=== PATIENT | male | born 1975 | race Caucasian/White ===

== ENCOUNTER → 2017-05-20 | Outpatient (CLI) | payer BC ==
--- NOTE | 2017-05-20 08:24 | US ---
EXAMINATION TYPE: US abdomen complete DATE OF EXAM: 05/20/2017 COMPARISON: NONE CLINICAL HISTORY: R10.11 Right upper quadrant pain. Pain that extends to back x 2 weeks, after eating greasy foods, has been changing up diet, large body habitus EXAM MEASUREMENTS: Liver Length: 19.7 cm Gallbladder Wall: 0.3 cm CBD: 0.6 cm Spleen: 11.1 cm Right Kidney: 11.7 x 5.7 x 6.4 cm Left Kidney: 13.4 x 5.7 x 7.0 cm *overlying bowel gas limits exam Pancreas: wnl Liver: difficult to penetrate, enlarged Gallbladder: wnl Evidence for sonographic Luna's sign: no CBD: wnl Spleen: wnl Right Kidney: wnl Left Kidney: wnl Upper IVC: wnl Abd Aorta: wnl The intrahepatic portion of the IVC and proximal abdominal aorta are within normal limits. There is no evidence of cholelithiasis. Common bile duct is unremarkable. The visualized portions of the pa ncreas are homogenous. The spleen is unremarkable. Kidneys are symmetric and free of hydronephrosis . No renal lesions are seen. IMPRESSION: 1. Hepatomegaly with probable underlying fatty hepatic infiltration versus hepatocellular disease.
== END | disposition home or self-care (01) ==
LOC: RADUSWWP 07:19
PROVIDERS: ATTEND Internal Medicine
DX: R16.0 Hepatomegaly, not elsewhere classified (principal); R10.11 Right upper quadrant pain
CPT/HCPCS: 76700

== ENCOUNTER → 2017-06-09 | Outpatient (CLI) | payer BC ==
--- NOTE | 2017-06-09 09:09 | NM ---
EXAMINATION TYPE: NM hepatobiliary w EF DATE OF EXAM: 06/09/2017 COMPARISON: Abdominal ultrasound dated 05/20/2017 HISTORY: Right upper quadrant pain TECHNIQUE: After the intravenous administration of 5.25 mCi Tc 99m Mebrofenin hepatobiliary scintigra phy is performed. Immediate images post injection. FINDINGS: There is satisfactory initial accumulation of tracer by the liver. The gallbladder is visualized wit hin 8 minutes. At one hour 8 ounces of oral ensure plus is given to mimic CCK and gallbladder ejecti on fraction is calculated at 73 %, in the normal range. Therefore there is no scintigraphic evidence of cystic or common bile duct obstruction to suggest acute cholecystitis or gallbladder dyskinesia. IMPRESSION: No scintigraphic evidence of acute cholecystitis, chronic cholecystitis or biliary dyskin esia.
== END | disposition home or self-care (01) ==
LOC: RADNMMAIN 06:47
PROVIDERS: ATTEND Family Medicine
DX: R10.9 Unspecified abdominal pain (principal)
CPT/HCPCS: 78226; A9537

== ENCOUNTER → 2023-11-19 | Day surgery (SDC) | payer BC ==
[~2023-11-19] MED LIST: LIDOCAINE 1% INJ 10MG/ML (20 ML MDV) ONE; PROPOFOL 10 MG/ML 20 ML VIAL IV ONE
[2023-11-19] MEDS: IV FLUID CONTINUATION 1,000 ML IV ONE (07:39)
[2023-11-19 07:48] VITALS: RESP 16; TEMP 97
--- NOTE | 2023-11-19 08:23 | P.GSHP ---
History of Present Illness H&P Date: 11/19/23 Chief Complaint: Screening colonoscopy This is a 47-year-old male presents today for screening colonoscopy. Patient denies any significant GI complaints. Past Medical History Past Medical History: GERD/Reflux History of Any Multi-Drug Resistant Organisms: None Reported Past Surgical History: Orthopedic Surgery Additional Past Surgical History / Comment(s): RIGHT rotator cuff, vasectomy Past Anesthesia/Blood Transfusion Reactions: No Reported Reaction Smoking Status: Never smoker Medications and Allergies Home Medications Medication Instructions Recorded Confirmed Type Ibuprofen [Motrin] 200 - 800 mg PO Q6H PRN 02/21/16 11/19/23 History Omeprazole [PriLOSEC] 20 mg PO QAM 11/17/23 11/19/23 History Allergies Allergy/AdvReac Type Severity Reaction Status Date / Time No Known Allergies Allergy Verified 11/19/23 07:42 Surgical - Exam Vital Signs Temp Pulse Resp BP Pulse Ox 97.0 F L 92 16 149/83 96 11/19/23 07:43 11/19/23 07:43 11/19/23 07:43 11/19/23 07:43 11/19/23 07:43 - General well developed, well nourished, no distress - Eyes PERRL - ENT normal pinna - Neck no masses - Respiratory normal expansion - Cardiovascular Rhythm: regular - Abdomen Abdomen: soft, non tender Assessment and Plan Assessment: Will perform screening colonoscopy
--- NOTE | 2023-11-19 08:39 | P.OP ---
Date of Procedure: 11/19/23 Preoperative Diagnosis: Screening colonoscopy Postoperative Diagnosis: Normal colon Procedure(s) Performed: Colonoscopy Anesthesia: MAC Surgeon: Ganga De Luna Pathology: none sent Condition: stable Disposition: PACU Description of Procedure: PROCEDURE: The patient was placed on the endoscopy table in the lateral position. Digital rectal examination was performed which revealed no abnormalities. The prostate was symmetrical without nodules. Flexible colonoscope was then placed in the patient's anus and passed throughout the entire colon. The ileocecal valve was visualized. The cecum, ascending, transverse, descending and sigmoid colon were normal. The rectum was normal as well. There were no masses, polyps or diverticula noted in the entire colon. SUMMARY OF FINDINGS: Normal colonoscopy.
[2023-11-19 09:09] VITALS: BP 118/76; PULSE 73
== END | disposition home or self-care (01) ==
LOC: ORWHC2ENDO 07:25
PROVIDERS: ATTEND Surgery
DX: Z12.11 Encounter for screening for malignant neoplasm of colon (principal); K21.9 Gastro-esophageal reflux disease without esophagitis; Z79.899 Other long term (current) drug therapy; E66.9 Obesity, unspecified
CPT/HCPCS: 45378